=== PATIENT | female | born 1980 | race Caucasian/White ===

== ENCOUNTER 2017-04-06 19:53 | Emergency (ER) | payer OTHER ==
[~2017-04-06] VITALS: Ht 160 cm; Wt 86.6 kg
[2017-04-06 20:15] VITALS: BP 125/79
[2017-04-07] MEDS ORDERED: FIORICET,ESG1 TABLET PO (00:38)
== END 2017-04-07 01:59 | disposition home or self-care (01) ==
LOC: EXP 19:53 → EME 19:53 → EXP 04-07 01:59
DX: R51 Headache (principal)
CPT/HCPCS: 99281; 99284

== ENCOUNTER 2017-07-11 02:39 | Emergency (ER) | payer OTHER ==
[~2017-07-11] VITALS: Ht 162.6 cm; Wt 80.8 kg
[~2017-07-11 02:39] MED LIST: FIORICET,ESG1 TABLET PO
[2017-07-11 03:40] LABS: APPEARANCE CLEAR ((CLEAR)); BILIRUBIN NEGATIVE; BLOOD NEGATIVE; COLOR STRAW ((YELLOW)); GLUCOSE (STRIP) NEGATIVE; KETONES NEGATIVE; LEUKOCYTES NEGATIVE; NITRITE NEGATIVE; PROTEIN (STRIP) NEGATIVE; SPECIFIC GRAVITY 1.006 (1.000-1.030); UCUL ADDED? NO; UROBILINOGEN 0.2 MG/DL (0.2-1.0)
[2017-07-11 03:45] LABS: AMPHETAMINE NEGATIVE (500 ng/mL); BARBITURATES NEGATIVE (200 ng/mL); BENZODIAZEPINES NEGATIVE (150 ng/mL); BUPRENORPHINE NEGATIVE (10 ng/mL); COCAINE PRESUMPTIVE POSITIVE (150 ng/mL); METHADONE NEGATIVE (200 ng/mL); METHAMPHETAMINE NEGATIVE (500 ng/mL); OPIATES (MORPHINE) NEGATIVE (100 ng/mL); OXYCODONE NEGATIVE (100 ng/mL); PHENCYCLIDINE NEGATIVE (25 ng/mL); PROPOXYPHENE NEGATIVE (300 ng/mL); THC CANNABINOIDS PRESUMPTIVE POSITIVE (50 ng/mL); TRICYCLIC ANTIDEPRESSANTS NEGATIVE (300 ng/mL)
[2017-07-11 04:26] LABS: HEMATOCRIT 36.2 % (36.0-46.0); HEMOGLOBIN 12.7 G/DL (11.9-15.5); MCH 31.5 PG (29.0-34.0); MCHC 35.1 G/DL (30.0-36.0); MCV 89.8 FL (83-99); RBC DIS.WIDTH-CV 13.3 % (11.8-14.6); RBC DIS.WIDTH-SD 44.5 % (39-53); RED BLOOD COUNT 4.03 M/uL (3.80-5.20); WHITE BLOOD COUNT 4.9 K/uL (4.1-10.2)
[2017-07-11 04:51] LABS: CHLORIDE 108 mEq/L (99-109); POTASSIUM 3.9 mEq/L (3.7-5.4); SODIUM 140 mEq/L (136-147)
[2017-07-11 04:52] LABS: GLUCOSE 103 mg/dL (70-99)
[2017-07-11 04:55] LABS: SERUM ETHYL ALCOHOL 114 mg/dL
[2017-07-11 04:56] LABS: CREATININE 0.7 mg/dL (0.6-1.3); GFR ESTIMATE (CALCULATED) > 59 mL/min/
[2017-07-11 04:57] LABS: UREA NITROGEN (BUN) 6 mg/dL (9-23)
[2017-07-11 05:38] LABS: PLATELET COUNT 217 K/uL (156-360)
[2017-07-11 05:59] LABS: QUANTITATIVE HCG < 4.0 MIU/ML
[2017-07-11 08:49] VITALS: BP 101/57
== END 2017-07-11 08:54 | disposition home or self-care (01) ==
LOC: EME 02:39
PROVIDERS: Nurse Practitioner Family
DX: F41.9 Anxiety disorder, unspecified (principal); F32.9 Major depressive disorder, single episode, unspecified; R45.851 Suicidal ideations; F43.0 Acute stress reaction; F19.10 Other psychoactive substance abuse, uncomplicated; F10.10 Alcohol abuse, uncomplicated; Y90.5 Blood alcohol level of 100-119 mg/100 ml; F14.10 Cocaine abuse, uncomplicated; F12.90 Cannabis use, unspecified, uncomplicated; Z04.6 Encounter for general psychiatric examination, requested by authority; F17.200 Nicotine dependence, unspecified, uncomplicated
CPT/HCPCS: 80048; 81003; 84702; 84999; 85027; 90837; 99281; 99283; G0480

== ENCOUNTER 2017-07-25 00:12 | Inpatient (IN) | payer OTHER ==
[~2017-07-25] VITALS: Ht 160 cm; Wt 79.5 kg
[2017-07-25 01:40] LABS: BASOPHIL (%) 0.1 % (0-1); EOSINOPHIL (%) 1.3 % (0-5); EOSINOPHIL COUNT 0.1 K/uL (0-0.3); HEMATOCRIT 35.5 % (36.0-46.0); HEMOGLOBIN 12.1 G/DL (11.9-15.5); IMMATURE GRANULOCYTE (%) 0.2 % (0.0-0.7); LYMPHOCYTE (%) 12.2 % (15-42); MCH 31.4 PG (29.0-34.0); MCHC 34.1 G/DL (30.0-36.0); MCV 92.2 FL (83-99); MONOCYTE (%) 6.4 % (3-12); MONOCYTE COUNT 0.5 K/uL (0-0.8); NEUTROPHIL (%) 79.8 % (45-76); NEUTROPHIL COUNT 6.6 K/uL (1.8-6.4); PLATELET COUNT 195 K/uL (156-360); RBC DIS.WIDTH-CV 13.5 % (11.8-14.6); RBC DIS.WIDTH-SD 45.8 % (39-53); RED BLOOD COUNT 3.85 M/uL (3.80-5.20); WHITE BLOOD COUNT 8.3 K/uL (4.1-10.2)
[2017-07-25 01:51] LABS: ALBUMIN 3.9 g/dL (3.2-4.8); CHLORIDE 110 mEq/L (99-109); POTASSIUM 3.2 mEq/L (3.7-5.4); SODIUM 140 mEq/L (136-147)
[2017-07-25 01:53] LABS: GLUCOSE 96 mg/dL (70-99); TOTAL PROTEIN 6.5 g/dL (6.4-8.3)
[2017-07-25 01:55] LABS: TOTAL BILIRUBIN 0.5 mg/dL (0.0-1.0)
[2017-07-25 01:56] LABS: SERUM ETHYL ALCOHOL 101 mg/dL
[2017-07-25 01:57] LABS: ALKALINE PHOSPHATASE 48 IU/L (3-129); CREATININE 0.8 mg/dL (0.6-1.3); GFR ESTIMATE (CALCULATED) > 59 mL/min/
[2017-07-25 01:58] LABS: AST (GOT) 19 IU/L (2-34)
[2017-07-25 01:59] LABS: UREA NITROGEN (BUN) 11 mg/dL (9-23)
[2017-07-25 02:00] LABS: SALICYLATE < 5.0 MG/DL (15-30)
[2017-07-25 02:01] LABS: ACETAMINOPHEN (TYLENOL) < 10 mcg/mL (10-30); ALT (GPT) 10 IU/L (3-49)
[2017-07-25 02:07] LABS: QUANTITATIVE HCG < 4.0 MIU/ML
[2017-07-25 09:13] LABS: BILIRUBIN NEGATIVE; BLOOD NEGATIVE; COLOR YELLOW ((YELLOW)); GLUCOSE (STRIP) NEGATIVE; KETONES NEGATIVE; LEUKOCYTES NEGATIVE; NITRITE NEGATIVE; PROTEIN (STRIP) NEGATIVE; UROBILINOGEN 0.2 MG/DL (0.2-1.0)
[2017-07-25 09:16] LABS: APPEARANCE CLEAR ((CLEAR)); UCUL ADDED? NO
[2017-07-25 09:22] LABS: AMPHETAMINE NEGATIVE (500 ng/mL); BENZODIAZEPINES PRESUMPTIVE POSITIVE (150 ng/mL); COCAINE PRESUMPTIVE POSITIVE (150 ng/mL); METHAMPHETAMINE NEGATIVE (500 ng/mL); OPIATES (MORPHINE) NEGATIVE (100 ng/mL); PHENCYCLIDINE NEGATIVE (25 ng/mL); THC CANNABINOIDS PRESUMPTIVE POSITIVE (50 ng/mL)
[2017-07-25 09:23] LABS: BARBITURATES NEGATIVE (200 ng/mL); BUPRENORPHINE NEGATIVE (10 ng/mL); METHADONE NEGATIVE (200 ng/mL); OXYCODONE NEGATIVE (100 ng/mL); PROPOXYPHENE NEGATIVE (300 ng/mL); TRICYCLIC ANTIDEPRESSANTS NEGATIVE (300 ng/mL)
[2017-07-25 10:03] LABS: BENZODIAZEPINES, URINE SCREEN Negative (200 ng/mL)
[2017-07-25 13:42] LABS: HEMATOCRIT 37.9 % (36.0-46.0); MCH 31.2 PG (29.0-34.0); MCHC 34.3 G/DL (30.0-36.0); MCV 90.9 FL (83-99); RBC DIS.WIDTH-CV 13.4 % (11.8-14.6); RBC DIS.WIDTH-SD 45.3 % (39-53); RED BLOOD COUNT 4.17 M/uL (3.80-5.20); WHITE BLOOD COUNT 5.7 K/uL (4.1-10.2)
[2017-07-25 14:34] LABS: PLAT.SUFFICIENCY ADEQUATE; PLATELET COUNT 194 K/uL (156-360)
[2017-07-26 12:22] VITALS: BP 150/89
[2017-07-26 12:37] VITALS: BP 150/89
[2017-07-26 15:36] VITALS: BP 143/68
[2017-07-27 07:58] VITALS: BP 129/79
[2017-07-27 15:40] VITALS: BP 141/75
[2017-07-28 07:33] VITALS: BP 98/59
== END 2017-07-28 12:37 | disposition home or self-care (01) | DRG 882 ==
LOC: EME 00:12 → 1WEST 07-26 10:40 → EDOF 07-26 10:40 → ENRESERV 07-26 12:12 → 1WEST 07-26 12:17
PROVIDERS: Emergency Medicine; Psychiatry & Neurology Psychiatry
DX: F43.25 Adjustment disorder with mixed disturbance of emotions and conduct (principal); F10.229 Alcohol dependence with intoxication, unspecified; F14.20 Cocaine dependence, uncomplicated; F12.90 Cannabis use, unspecified, uncomplicated; Z59.0 Homelessness; F17.200 Nicotine dependence, unspecified, uncomplicated; R45.851 Suicidal ideations; E86.0 Dehydration; F10.220 Alcohol dependence with intoxication, uncomplicated; Y90.5 Blood alcohol level of 100-119 mg/100 ml; Z78.1 Physical restraint status
CPT/HCPCS: 80053; 81003; 82948; 84702; 84999; 85025; 85027; 90837; 99281; 99285; G0480; J1630; J2060; Q0177

== ENCOUNTER 2017-11-09 00:44 | Emergency (ER) | payer OTHER ==
[~2017-11-09] VITALS: Ht 162.6 cm; Wt 77.0 kg
[2017-11-09 01:04] VITALS: BP 114/86
== END 2017-11-09 01:05 ==
LOC: EME 00:44
DX: F10.129 Alcohol abuse with intoxication, unspecified (principal); Z02.89 Encounter for other administrative examinations; Y90.9 Presence of alcohol in blood, level not specified; F17.200 Nicotine dependence, unspecified, uncomplicated
CPT/HCPCS: 99281; 99283